=== PATIENT | female | born 1970 | race Caucasian/White ===

== ENCOUNTER → 2024-06-16 | Outpatient (CLI) | payer BC, SELFPAY ==
--- NOTE | 2024-06-16 | XR_ITS ---
Examination: CT abdomen, without intravenous contrast. CT abdomen, with intravenous contrast. Sagittal and coronal 2-D reconstructions. Time of exam:June 16, 2024 1236 hours INDICATIONS: Cirrhosis, liver fibrosis diagnosis, right upper abdominal pain beginning 6 months ago CTDI: vol (mGy) 18.6 DLP: (mGycm) 597 Technique: Multiple 3.0 mm axial noncontrast images of the abdomen have been obtained. Multiple 3.0 mm axial images post administration 60 cc [id number] intravenous contrast have been obtained. Sagittal and coronal 3-D reconstructions have been obtained. Low dose protocols were performed. One or more of the following dose reduction techniques were used; automated exposure control, adjustment of the mA and/or KV according to patient size, use of iterative reconstruction technique. Findings: 3 mm, 4 mm pulmonary nodules right lower lobe Diffuse fatty infiltration throughout the liver with hyperechoic area in the medial right lobe liver, 23 mm Spleen is not enlarged No gallstones No pancreatic or adrenal mass Mild bilateral renal parenchymal scar formation Aorta normal size 10 mm fat-containing umbilical hernia No bowel obstruction No pericecal inflammatory change IMPRESSION: Subcentimeter pulmonary nodules right lower lobe, recommend PA lateral chest follow-up Fatty liver, 23 mm medial right lobe liver lesion, recommend MRI abdomen liver follow-up pre and postcontrast to assess this liver lesion
== END | disposition home or self-care (01) ==
PROVIDERS: Referring Provider Nurse Practitioner Family; Visit Provider Nurse Practitioner Family
DX: R91.8 Other nonspecific abnormal finding of lung field (principal); K76.0 Fatty (change of) liver, not elsewhere classified
CPT/HCPCS: 74170; A4649; Q9967

== ENCOUNTER → 2024-08-04 | Outpatient (CLI) | payer BC, SELFPAY ==
--- NOTE | 2024-08-04 14:15 | XR_ITS ---
Examination: Screening digital mammography, bilateral Computer aided detection 3-D breast Tomosynthesis, bilateral Date and time of exam: 08/04/2024, 1:51 PM Comparisons: June 2021, June 2023 Indications: Screening Technique: Nonmagnified MLO, CC views of the breasts to been obtained, reconstructed from 3-D Tomosynthesis images. R2 computer aided detection program utilized for evaluation of suspicious masses and/or abnormal calcifications. 3-D Tomosynthesis images obtained. Technologist: Findings: There are scattered areas of fibroglandular density. No evidence of abnormal masses or suspicious calcifications. Impression: BI-RADS category 1: Negative findings (within normal) Recommend 1 year follow-up mammogram
== END | disposition home or self-care (01) ==
LOC: CDIM 13:46
PROVIDERS: PCP Family Medicine; Referring Provider Family Medicine; Visit Provider Family Medicine
DX: Z12.31 Encounter for screening mammogram for malignant neoplasm of breast (principal); R92.313 Mammographic fatty tissue density, bilateral breasts
CPT/HCPCS: 77063; 77067

== ENCOUNTER → 2024-12-17 | Outpatient (CLI) | payer BC, SELFPAY ==
--- NOTE | 2024-12-17 15:00 | XR_ITS ---
Examination: MRI abdomen with intravenous contrast. MRI abdomen without intravenous contrast. Date and time of exam: December 17, 2024 1833 hours INDICATIONS: CT abdomen pelvis study June 16, 2024, 23 medial right lobe liver lesion Technique: Multiple axial, sagittal and coronal sections of the abdomen obtained. Transverse images, TR 6020, TE 107. T1 weighted transverse images, TR 582, TE 9.5. T2-weighted sagittal images, TR 4000, TE 105. T2-weighted sagittal images, TR 4000, TE 5. Coronal images, TR 4210, TE 107. Axial and coronal images are obtained post 19 cc intravenous injection, gadolinium. Findings: Precontrast images demonstrate no convincing liver lesion Postcontrast images do not confirm definite enhancing medial or other liver lesion No biliary tract dilatation Contracted gallbladder Spleen is not enlarged Normal pancreas Normal common hepatic common bile duct No hydronephrosis No ascites No abdominal lymphadenopathy IMPRESSION: No enhancing liver lesion noted on this study Recommend 3 month follow-up hepatic sonography
== END | disposition home or self-care (01) ==
LOC: SMRI 14:57
PROVIDERS: PCP Nurse Practitioner Family; Referring Provider Nurse Practitioner Family; Visit Provider Nurse Practitioner Family
DX: K76.9 Liver disease, unspecified (principal)
CPT/HCPCS: 74183; A9579

== ENCOUNTER → 2025-01-06 | Outpatient (CLI) | payer BC, SELFPAY ==
--- NOTE | 2025-01-06 14:30 | XR_ITS ---
Examination: CT chest, without intravenous contrast. Sagittal and coronal 2-D reconstructions. Exam date and time: January 06, 2025 at 1439 hours INDICATIONS: CT abdomen pelvis June 16, 2024 3 mm, 4 mm pulmonary nodules right lower lobe CTDI:vol (mGy) 14 DLP: (mGycm) 170 Technique: Multiple 3.0 mm axial sections of the chest to been obtained. Bone and lung density settings are obtained. Sagittal and coronal 2-D reconstructions have been obtained. Low dose protocols were performed. One or more of the following dose reduction techniques were used; automated exposure control, adjustment of the mA and/or KV according to patient size, use of iterative reconstruction technique. Findings: No thoracic aortic aneurysm dilatation Pulmonary artery segments are not enlarged No paratracheal tracheobronchial or bronchopulmonary adenopathy. 2 mm pulmonary nodule anterior segment right upper lobe image 157 2 mm pulmonary nodule right middle lobe axial image 183 4 mm pulmonary nodule right lower lobe axial image 189 No pneumonia or pulmonary edema No visualized liver or splenic lesion Contracted gallbladder No pancreatic or adrenal mass Moderate renal parenchymal scar formation Moderate thoracic spondylosis and degenerative change IMPRESSION: Noncalcified pulmonary nodules as above, consider continued 6 month follow-up CT chest without contrast
== END | disposition home or self-care (01) ==
LOC: CCTX 14:17
PROVIDERS: PCP Nurse Practitioner Family; Referring Provider Specialist; Visit Provider Specialist
DX: R91.8 Other nonspecific abnormal finding of lung field (principal)
CPT/HCPCS: 71250